=== PATIENT | male | born 1995 | race Caucasian/White ===

== ENCOUNTER 2018-01-16 21:44 | Emergency (ER) | payer BC ==
[~2018-01-16] VITALS: Ht 177.8 cm; Wt 97.7 kg
[2018-01-16 21:46] VITALS: BP 136/90; TEMP 98.7
[2018-01-16] MEDS ORDERED: CRUTCHES MC (22:30)
[2018-01-16 23:12] VITALS: PULSE 69
== END 2018-01-16 23:12 | disposition home or self-care (01) ==
LOC: COL.ER 21:44
DX: S99.911A Unspecified injury of right ankle, initial encounter (principal); X50.0XXA Overexertion from strenuous movement or load, initial encounter; Y92.830 Public park as the place of occurrence of the external cause; Y93.64 Activity, baseball
CPT/HCPCS: Q4045